=== PATIENT | female | born 1980 | race Caucasian/White ===

== ENCOUNTER 2016-11-01 13:03 | Emergency (ER) | payer BC ==
[2016-11-01 15:02] VITALS: BP 107/67
--- NOTE | 2016-11-01 15:55 | UC ---
Respiratory Complaint HPI - HPI Summary HPI Summary: 3 weeks of worsening cough and chest congestion, no fevers, 1 ppd smoker x 20 years - History of Current Complaint Chief Complaint: UCRespiratory Stated Complaint: DEEP CHEST CONGEST,COUGH Time Seen by Provider: 11/01/16 15:23 Hx Obtained From: Patient Hx Last Menstrual Period: 10/08/16 ?: No Onset/Duration: Gradual Onset, Lasting Weeks - 3, Still Present Severity Initially: Mild Severity Currently: Moderate Pain Intensity: 7 Pain Scale Used: 0-10 Numeric Character: Cough: Productive Aggravating Factors: Exertion, Deep Breaths Alleviating Factors: Nothing Associated Signs And Symptoms: Positive: Pleuritic Chest Pain, Wheezing, URI - Allergies/Home Medications Allergies/Adverse Reactions: Allergies Allergy/AdvReac Type Severity Reaction Status Date / Time No Known Allergies Allergy Verified 11/01/16 14:57 PMH/Surg Hx/FS Hx/Imm Hx Previously Healthy: Yes - Surgical History Surgical History: Yes Surgery Procedure, Year, and Place: APPENDECTOMY - Family History Known Family History: Positive: None - noncontributory - Social History Occupation: Employed Full-time Lives: With Family Alcohol Use: Occasionally Substance Use Type: None Smoking Status (MU): Heavy Every Day Tobacco Smoker Type: Cigarettes Amount Used/How Often: 1 PPD Length of Time of Smoking/Using Tobacco: 20 Have You Smoked in the Last Year: Yes Cessation Counseling: Counseled 3+Min - 10 Min Review of Systems Constitutional: Negative Skin: Negative Eyes: Negative ENT: Negative Respiratory: Cough Cardiovascular: Negative Gastrointestinal: Negative Genitourinary: Negative Motor: Negative Neurovascular: Negative Musculoskeletal: Negative Neurological: Negative Psychological: Negative All Other Systems Reviewed And Are Negative: Yes Physical Exam Triage Information Reviewed: Yes Appearance: Well-Appearing, No Pain Distress, Well-Nourished Vital Signs: Initial Vital Signs Temp 98.0 F 11/01/16 14:58 Pulse 60 11/01/16 14:58 Resp 16 11/01/16 14:58 BP 107/67 11/01/16 14:58 Pulse Ox 96 11/01/16 14:58 Vital Signs Reviewed: Yes Eye Exam: Normal Eyes: Positive: Conjunctiva Clear ENT Exam: Normal ENT: Positive: Normal ENT inspection, Hearing grossly normal, Pharynx normal, TMs normal. Negative: Nasal congestion, Nasal drainage, Tonsillar swelling, Tonsillar exudate, Trismus, Muffled/hoarse voice Dental Exam: Normal Neck exam: Normal Neck: Positive: Supple, Nontender, No Lymphadenopathy Respiratory Exam: Other Respiratory: Positive: Chest non-tender, No respiratory distress, No accessory muscle use, Wheezing - B/L Cardiovascular Exam: Normal Cardiovascular: Positive: RRR, No Murmur, Pulses Normal, Brisk Capillary Refill Musculoskeletal Exam: Normal Musculoskeletal: Positive: Strength Intact, ROM Intact, No Edema Neurological Exam: Normal Neurological: Positive: Alert, Muscle Tone Normal Psychological Exam: Normal Skin Exam: Normal UC Diagnostic Evaluation - Laboratory O2 Sat by Pulse Oximetry: 96 Respiratory Course/Dx - Course Course Of Treatment: Zithromax, prednisone, (refused Albuterol), nicotine cesation information, increase fluids follow with pcp - Differential Dx/Diagnosis Differential Diagnosis/HQI/PQRI: Bronchitis, Exacerbation Of COPD, Laryngitis, Lower Resp Infection, Sinusitis Provider Diagnoses: Bronchitis, nicotine dependant Discharge - Discharge Plan Condition: Stable Disposition: HOME Prescriptions: Azithromycin TAB* [Zithromax TAB (Z-THERON) 250 mg #6 tabs] 2 tab PO .TODAY, THEN 1 DAILY #1 theron predniSONE TAB* [Deltasone TAB*] 10 mg PO DAILY #20 tab Patient Education Materials: How to Stop Smoking (ED), Acute Bronchitis (ED), Bronchospasm (ED), Wheezing (ED) Referrals: Roldan JONES,Alejandro Mccarthy [Medical Doctor] - 1 Week
== END 2016-11-01 16:07 | disposition home or self-care (01) ==
LOC: UCEAST 13:03
DX: J40 Bronchitis, not specified as acute or chronic (principal); Z87.891 Personal history of nicotine dependence
CPT/HCPCS: 99212; G0463

== ENCOUNTER 2016-11-21 11:29 | Emergency (ER) | payer BC | END 2016-11-21 13:32 | disposition left against medical advice (07) | LOC: UCEAST 11:29 | DX: J06.9 Acute upper respiratory infection, unspecified (principal); Z53.21 Procedure and treatment not carried out due to patient leaving prior to being seen by health care provider ==

== ENCOUNTER → 2016-11-21 12:27 | Emergency (ER) | payer BC ==
[~2016-11-21 12:27] MED LIST: Albuterol/Ipratropium NEB.SOL* Albuterol 2.5 MG/Ipratropium 0.5 MG 3 ML INH ONE
--- NOTE | 2016-11-21 14:02 | RAD ---
INDICATION: RIGHT lower lobe region pain. Cough and congestion. COMPARISON: December 21, 2013 CT. TECHNIQUE: Dual energy PA and routine lateral views of the chest were obtained. REPORT: Clear lungs and pleural spaces. Negative for pneumothorax. The heart, pulmonary vasculature, and mediastinal contours are unremarkable. Healed RIGHT 9th, 10th, and 11th rib fractures. No acute rib fracture evident. IMPRESSION: No evidence for pneumonia. No evidence for acute intrathoracic disease.
[2016-11-21 14:43] VITALS: BP 105/55
--- NOTE | 2016-11-22 19:02 | ED ---
HPI Cardiac - HPI Summary HPI Summary: Pt here w/ cough x weeks. Started as allergy sx - itchy, watery eyes, hives on skin. 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 This progressed into nasal congestion and cough. Tried anti-histamine which relieved ocular sx, nasal congestion and hives but cough lingered. Kids were having similar sx as well so they all went to . Pt rx'd zithromax and prednisone as she was wheezing. States brief relief but even more relief when she tried her daughter's albuterol inhaler. This is now gone as daughter completed use during her illness. Pt denies known h/o asthma, COPD however admits to h/o smoking. Has been smoking less as it hurts her lungs to so this now. She is very motivated to quit smoking. Quit in the past when she was w/ nicotine patch and e-cig. Denies fever, chills, N/V/D. - History of Current Complaint Chief Complaint: EDGeneral Stated Complaint: CHEST CONGESTION/BACK PAIN Time Seen by Provider: 11/21/16 12:43 Hx Obtained From: Patient Pain Intensity: 3 - Allergy/Home Medications Allergies/Adverse Reactions: Allergies Allergy/AdvReac Type Severity Reaction Status Date / Time No Known Allergies Allergy Verified 11/01/16 14:57 PMH/Surg Hx/FS Hx/Imm Hx Previously Healthy: Yes Endocrine/Hematology History: Denies: Autoimmune Disease Respiratory History: Reports: Hx Chronic Bronchitis - clinically gets bronchitis annually and smokes, Hx Chronic Obstructive Pulmonary Disease (COPD) , Hx Seasonal Allergies - hay fever every spring/summer - Surgical History Surgery Procedure, Year, and Place: APPENDECTOMY Infectious Disease History: No Infectious Disease History: Denies: Traveled Outside the [place] in Last 30 Days - Family History Known Family History: Positive: None - noncontributory - Social History Lives: With Family Alcohol Use: Occasionally Hx Substance Use: No Substance Use Type: Reports: None Hx Tobacco Use: Yes Smoking Status (MU): Current Every Day Smoker Type: Cigarettes Amount Used/How Often: 1 PPD Length of Time of Smoking/Using Tobacco: 20 Have You Smoked in the Last Year: Yes Review of Systems Constitutional: Negative Negative: Fever, Chills Negative: Drainage, Erythema Negative: Sore Throat, Ear Ache, Nasal Discharge Negative: Palpitations, Chest Pain Positive: Cough. Negative: Shortness Of Breath Gastrointestinal: Negative Positive: no symptoms reported Musculoskeletal: Negative Negative: Rash Neurological: Negative Psychological: Normal All Other Systems Reviewed And Are Negative: Yes Physical Exam Triage Information Reviewed: Yes Vital Signs On Initial Exam: Initial Vitals Temp Pulse Resp BP Pulse Ox 97.9 F 55 20 108/68 100 11/21/16 12:34 11/21/16 12:34 11/21/16 12:34 11/21/16 12:34 11/21/16 12:34 Vital Signs Reviewed: Yes Appearance: Positive: Well-Appearing, No Pain Distress, Well-Nourished Skin: Positive: Warm, Dry - no rash Head/Face: Positive: Normal Head/Face Inspection Eyes: Positive: Normal, EOMI, SHAAN, Conjunctiva Clear. Negative: Conjunctiva Inflammed, Discharge ENT: Positive: Normal ENT inspection, Hearing grossly normal, Pharynx normal, TMs normal. Negative: Nasal congestion, Nasal drainage, Tonsillar swelling, Tonsillar exudate Neck: Positive: Supple, Nontender, No Lymphadenopathy Respiratory/Lung Sounds: Positive: Clear to Auscultation, Breath Sounds Present. Negative: Rales, Rhonchi, Stridor, Wheezes Cardiovascular: Positive: Normal, RRR, S1, S2 Abdomen Description: Positive: Nontender, No Organomegaly, Soft Bowel Sounds: Positive: Present Musculoskeletal: Positive: Normal, Strength/ROM Intact Neurological: Positive: Normal, Sensory/Motor Intact, Alert, Oriented to Person Place, Time, CN Intact II-III Psychiatric: Positive: Normal Procedures - Procedure Summary Procedure Summary: Duoneb - pt had relief of sx/cough Diagnostics - Vital Signs Vital Signs Temp Pulse Resp BP Pulse Ox 11/21/16 14:41 98.2 F 57 16 105/55 11/21/16 13:45 72 11/21/16 12:36 97.9 F 61 20 108/68 99 11/21/16 12:34 97.9 F 55 20 108/68 100 - Laboratory Lab Statement: Any lab studies that have been ordered have been reviewed, and results considered in the medical decision making process. Re-Evaluation - Re-Evaluation First Eval Change: Improved Disposition - Course Course Of Treatment: Suspect pt has asthma or COPD as she gets recurrent breathing issues w/ hayfever attacks this time of year. > 3 mins counseling on smoking cessation as pt is motivated to quit. Also suggested discussing PFT's w / PCP or pulmonology/freight unloader. Pt is receptive to recommendations and agrees to f/u. Discussed danger s/sx of when to return to ED. - Diagnoses Provider Diagnoses: Reactive airway disease Discharge - Discharge Plan Condition: Stable Disposition: HOME Prescriptions: Albuterol HFA INHALER* [Ventolin HFA Inhaler*] 2 puff INH Q6H PRN #1 mdi PRN Reason: Cough Patient Education Materials: Allergies (ED), Bronchospasm (ED) Referrals: Fatmata Shook MD [Medical Doctor] - Richy Watson MD [Primary Care Provider] - 3 Days Additional Instructions: Use albuterol as directed Avoid triggers as much as possible (ie. allergens, smoking, etc) You may continue anti-histamines as well It is important that you follow-up with your PCP for pulmonary testing. If this is not an option with current turnover at your PCP's office, you may consider an allergy/pulmonogy consult as this is a recurring issue this time of year. *If you develop fever, chills, shortness of breath, bloody cough, difficulty breathing, return to ED [facility]
== END | disposition home or self-care (01) ==
LOC: ED 12:27
DX: J45.909 Unspecified asthma, uncomplicated (principal); R09.89 Other specified symptoms and signs involving the circulatory and respiratory systems; R05 Cough; F17.210 Nicotine dependence, cigarettes, uncomplicated
CPT/HCPCS: 71020; 94640; 99282; A9270-GY

== ENCOUNTER 2018-05-04 10:46 | Emergency (ER) | payer BC ==
[2018-05-04 12:54] VITALS: BP 134/81
--- NOTE | 2018-05-04 13:04 | UC ---
Throat Pain/Nasal Fredis HPI - HPI Summary HPI Summary: sore throat on off for 2-3 weeks --no fevers some cough is concerned because son has had similar symptoms for about 5 weeks and they just got a note from the school nurse that a child in the school has mono - History of Current Complaint Chief Complaint: UCGeneralIllness Stated Complaint: THROAT PAIN Time Seen by Provider: 05/04/18 12:37 Hx Obtained From: Patient Hx Last Menstrual Period: 2 weeksago ?: No Onset/Duration: Gradual Onset, Lasting Weeks - 2-3, Still Present Severity: Moderate Pain Intensity: 5 Pain Scale Used: 0-10 Numeric Cough: Nonproductive - Allergies/Home Medications Allergies/Adverse Reactions: Allergies Allergy/AdvReac Type Severity Reaction Status Date / Time No Known Allergies Allergy Verified 05/04/18 12:54 PMH/Surg Hx/FS Hx/Imm Hx Previously Healthy: Yes - Surgical History Surgical History: Yes Surgery Procedure, Year, and Place: APPENDECTOMY - Family History Known Family History: Positive: None - noncontributory - Social History Occupation: Employed Full-time Lives: With Family Alcohol Use: Occasionally Substance Use Type: None Smoking Status (MU): Current Every Day Smoker Type: Cigarettes Amount Used/How Often: 1 PPD Length of Time of Smoking/Using Tobacco: 20 Have You Smoked in the Last Year: Yes Review of Systems All Other Systems Reviewed And Are Negative: Yes Constitutional: Positive: Negative Skin: Positive: Negative Eyes: Positive: Negative ENT: Positive: Sore Throat Respiratory: Positive: Cough Cardiovascular: Positive: Negative Gastrointestinal: Positive: Negative Genitourinary: Positive: Negative Motor: Positive: Negative Neurovascular: Positive: Negative Musculoskeletal: Positive: Negative Neurological: Positive: Negative Psychological: Positive: Negative Is Patient Immunocompromised?: No Physical Exam Triage Information Reviewed: Yes Appearance: Well-Appearing, No Pain Distress, Well-Nourished Vital Signs: Initial Vital Signs Temp 97.1 F 05/04/18 12:49 Pulse 72 05/04/18 12:49 Resp 14 05/04/18 12:49 BP 134/81 05/04/18 12:49 Pulse Ox 97 05/04/18 12:49 Vital Signs Reviewed: Yes Eye Exam: Normal Eyes: Positive: Conjunctiva Clear ENT Exam: Normal ENT: Positive: Normal ENT inspection, Hearing grossly normal, Pharynx normal, TMs normal, Uvula midline. Negative: Nasal congestion, Tonsillar swelling, Tonsillar exudate, Trismus, Muffled voice, Hoarse voice, Dental tenderness, Sinus tenderness Dental Exam: Normal Neck exam: Normal Neck: Positive: Supple, Nontender Respiratory Exam: Normal Respiratory: Positive: Chest non-tender, Lungs clear, Normal breath sounds, No respiratory distress, No accessory muscle use Cardiovascular Exam: Normal Cardiovascular: Positive: RRR, No Murmur, Pulses Normal, Brisk Capillary Refill Musculoskeletal Exam: Normal Musculoskeletal: Positive: Strength Intact, ROM Intact, No Edema Neurological Exam: Normal Neurological: Positive: Alert, Muscle Tone Normal Psychological Exam: Normal Skin Exam: Normal Throat Pain/Nasal Course/Dx - Course Assessment/Plan: mono test, full throat culture, increase fluids tylenol, ibuprofen follow with pcp prn - Differential Dx/Diagnosis Provider Diagnosis: Pharyngitis with viral syndrome, Nicotine dependence Discharge - Sign-Out/Discharge Documenting (check all that apply): Patient Departure All imaging exams completed and their final reports reviewed: No Studies - Discharge Plan Condition: Stable Disposition: HOME Patient Education Materials: Pharyngitis (ED), Viral Syndrome (ED) Referrals: Richy Watson MD [Primary Care Provider] - If Needed - Billing Disposition and Condition Condition: STABLE Disposition: Home
--- NOTE | 2018-05-06 09:01 | PN ---
Progress Note - Progress Note Date of Service: 05/06/18 Note: monospot negative. please contact patient to tell of result.
--- NOTE | 2018-05-07 16:14 | UC ---
- Progress Note Progress Note: EBV IGM positive despite monospot negative. This indicates that she has a mono-like viral infection. Please refrain from contact sports/activities. Treatment is supportive as with mono as directed as last visit. Recheck if symptoms worsen or if new symptoms. Course/Dx - Diagnoses Provider Diagnoses: Pharyngitis with viral syndrome, Nicotine dependence Discharge - Sign-Out/Discharge Documenting (check all that apply): Post-Discharge Follow Up All imaging exams completed and their final reports reviewed: No Studies - Discharge Plan Condition: Stable Disposition: HOME Patient Education Materials: Pharyngitis (ED), Viral Syndrome (ED) Referrals: Richy Watson MD [Primary Care Provider] - If Needed - Billing Disposition and Condition Condition: STABLE Disposition: Home
== END 2018-05-04 14:02 | disposition home or self-care (01) ==
LOC: UCEAST 10:46
DX: B34.9 Viral infection, unspecified (principal); J02.9 Acute pharyngitis, unspecified; F17.210 Nicotine dependence, cigarettes, uncomplicated
CPT/HCPCS: 36415; 86308; 86664; 86665; 87070; 99211; G0463

== ENCOUNTER 2018-05-10 11:34 | Emergency (ER) | payer BC ==
[2018-05-10 11:52] VITALS: BP 109/67
--- NOTE | 2018-05-10 12:28 | UC ---
Knee Pain HPI - HPI Summary HPI Summary: 37 yo female c/o L knee pain progressively worse s/p twist and fall while doing outdoor chores 2 days ago. Landed on lateral aspect of Left knee. Twisted knee right before fall. No other injury reported. Able to ambulate but painful. Helps to elevate / wrap. No distal p/d/w. + eccymosis. No known previous knee injury. - History of Current Complaint Chief Complaint: UCLowerExtremity Stated Complaint: KNEE INJURY Time Seen by Provider: 05/10/18 11:54 Hx Obtained From: Patient Hx Last Menstrual Period: 05/09/18 Pain Intensity: 7 - Allergies/Home Medications Allergies/Adverse Reactions: Allergies Allergy/AdvReac Type Severity Reaction Status Date / Time No Known Allergies Allergy Verified 05/10/18 11:52 PMH/Surg Hx/FS Hx/Imm Hx Previously Healthy: Yes - Surgical History Surgical History: Yes Surgery Procedure, Year, and Place: APPENDECTOMY - Family History Known Family History: Positive: None - noncontributory - Social History Alcohol Use: Occasionally Substance Use Type: None Smoking Status (MU): Current Every Day Smoker Type: Cigarettes Amount Used/How Often: 1 PPD Length of Time of Smoking/Using Tobacco: 20 Have You Smoked in the Last Year: Yes Review of Systems All Other Systems Reviewed And Are Negative: Yes Constitutional: Positive: Negative Skin: Positive: Other - see hpi Eyes: Positive: Negative ENT: Positive: Negative Respiratory: Positive: Negative Cardiovascular: Positive: Negative Gastrointestinal: Positive: Negative Genitourinary: Positive: Negative Motor: Positive: Other - see hpi Neurovascular: Positive: Other - see hpi Musculoskeletal: Positive: Arthralgia Neurological: Positive: Negative Psychological: Positive: Negative Is Patient Immunocompromised?: No Physical Exam Triage Information Reviewed: Yes Appearance: Well-Appearing, Well-Nourished Vital Signs: Initial Vital Signs Temp 98.1 F 05/10/18 11:48 Pulse 75 05/10/18 11:48 Resp 17 05/10/18 11:48 BP 109/67 05/10/18 11:48 Pulse Ox 100 05/10/18 11:48 Vital Signs Reviewed: Yes Eye Exam: Normal ENT Exam: Normal Neck exam: Normal Neck: Positive: Supple Respiratory Exam: Normal - no tachypnea, no dyspnea. RR normal Cardiovascular Exam: Normal Cardiovascular: Positive: RRR, No Murmur, Pulses Normal, Brisk Capillary Refill Abdominal Exam: Normal Abdomen Description: Positive: Nontender Musculoskeletal Exam: Other - L knee + swelling + crepitus, ehsan ant patella. + eccymosis mid inf medial patella. Mild fluctuant post knee, min local tender. Tender lat and med rotation, not excrutiating. + hesitation ant drawer Neurological Exam: Normal - distal nvi. grossly nonfocal Psychological Exam: Normal - conversing easily and appropriately Skin Exam: Normal - see [facility] [place] sk[facility] re eccymosis Knee Pain Course/Dx - Course Course Of Treatment: Reviewed xray with pt. Offered crutches, she declines, will make do at home. Considered knee immobilizer, but too straight for pt comfort. Carlos Enrique applied today. Callled orthopedics - they kindly will see Ms. Gamble next week, they will call her with appt. Suspect internal knee trauma. Questions as posed answered to the best of my ability. - Differential Dx/Diagnosis Provider Diagnosis: Knee sprain, Bruise, Internal knee problem Discharge - Sign-Out/Discharge Documenting (check all that apply): Patient Departure All imaging exams completed and their final reports reviewed: Yes - Discharge Plan Condition: Stable Disposition: HOME Prescriptions: Ibuprofen TAB* [Motrin TAB* 600 MG] 600 mg PO Q8H PRN #30 tab PRN Reason: Pain Patient Education Materials: Knee Sprain (ED), Contusion in Adults (ED) Forms: *Work Release Referrals: Gudelia Garrett MD [Medical Doctor] - Additional Instructions: Minimize weight bearing. Elevate as possible. Seek medical attention for worse or new problems. Follow up with orthopedic surgeon next week. Consider glucosamine chondroitin supplement. - Billing Disposition and Condition Condition: STABLE Disposition: Home
== END 2018-05-10 13:20 | disposition home or self-care (01) ==
LOC: UCEAST 11:34
DX: S83.92XA Sprain of unspecified site of left knee, initial encounter (principal); S80.02XA Contusion of left knee, initial encounter; X50.1XXA Overexertion from prolonged static or awkward postures, initial encounter; Y92.9 Unspecified place or not applicable; F17.210 Nicotine dependence, cigarettes, uncomplicated
CPT/HCPCS: 99212; G0463